=== PATIENT | female | born 1975 | race Two or more races ===

== ENCOUNTER 2025-06-03 16:59 | Emergency (ER) | payer OTHER, SELFPAY ==
--- OUTSIDE RECORDS SUMMARY | 2023-06-11 10:31 | XMS_ITS | Continuity of Care Document ---
Author Organization [facility] Address [address] [address] [place] [address] Phone Care Team Providers Care Devops Developer Name Role Phone Brigitte Willoughby CRNA Unavailable Unavailable Allergies, Adverse Reactions, Alerts Substance Reaction Status Criticality No Known Allergies Active No Inform ation Medications Medication Instructions Dosage Effective Dates (start - stop) Status Comments No Drug Therapy Prescribed Procedures Procedure Date Colonoscopy Flex; W/remov Les- Level Iv-surg Path Gross/micro Advance Directives Directive Yes / No Effective Date File Name No Information Encounters Encounter Description Practice Location Reason(s) For Visit Diagnoses Date Provider Providers Copied on Encounter [facility], [address] [address], [place], [place], [id number], tel:[phone] [facility] No Information 3 Fartun Briggs. [address] [facility], [address], [id number] , [place]. tel:[phone] Referring Provider: Jacques Campuzano MD M, [address] [facility] [address] [place], [address] . tel:[phone] [facility] [place], [address] [address], [place], [place], [id number], tel:[phone] [facility] GI Symptoms or Concerns (chief complaint) Colorectal polypsEncounter for screening for malignant neoplasm of colonBenign neoplasm of transverse colon 3 Justen Hanna. [address] [facility], [address], [place], [place], [id number] , [place]. [phone] Referring Provider: Referral Self, USE FOR SELF REFERRALS. Family History Family Member Type Diagnosis Age At Onset Father Problem (finding) Cancer, prostate Father Problem (finding) Alcoholism Father Problem (finding) Pancreatitis Father Problem (finding) Cancer, lung Payers Payer name Insurance type Covered democrat ID Mariana kate(s) [employer] CR/MA [id number] Social History Type Description Quantity Date Captured Comments Sex Female Smoking Status No Information Chief Complaint And Reason For Visit No Information Reason For Referral Reason For Referral No Information History Of Present Illness Encounter Date Complaint History Of Prese nt Illness GI Symptoms or Concerns Functional Status Date Functional Assessmen t No Information Medications Administered Medication Instructions Dosage Effective Dates (start - stop) Status Comments No Drug Therapy Prescribed Instructions Date Instruction Additional Infor david Colon Cancer Prevention Related to Colorectal polyps Colon Polyps Related to Color ectal polyps Assessments Type Assessment Date No Information Patient Care Teams Name Effective Dates (start - stop) Status Members No Information
--- OUTSIDE RECORDS SUMMARY | 2023-06-11 10:31 | XMS_ITS | Continuity of Care Document ---
Author Organization [facility] Address [address] [address] [place] [address] Phone Care Team Providers Care Cabin Worker Name Role Phone Brigitte Willoughby CRNA Unavailable [...] Date Provider Providers Copied on Encounter [facility], [address] [address], [place], [place], [id number], tel:[phone] [facility] No Information 3 Fartun Briggs. [address] [facility], [address], [id number] , [place]. tel:[phone] Referring Provider: Jacques Campuzano MD M, [address] [facility] [address], [place], [address] . tel:[phone] [facility], [address] [address], [place], [place], [id number], tel:[phone] [facility] GI Symptoms or Concerns (chief complaint) Colorectal polypsEncounter for screening for malignant neoplasm of colonBenign neoplasm of transverse colon 3 Justen Hanna. [address] [facility], [address], [place], [place], [id number] , [place]. [phone] Referring Provider: Referral Self, USE FOR SELF REFERRALS. Family History Family Member Type Diagnosis Age At Onset Father Problem (finding) Cancer, prostate Father Problem (finding) Alcoholism Father Problem (finding) Pancreatitis Father Problem (finding) Cancer, lung Payers Payer name Insurance type Covered democrat ID Mariana kate(s) [employer] CR/MA [id number] Social History Type Description Quantity Date Captured [...]
--- OUTSIDE RECORDS SUMMARY | 2023-06-11 10:31 | XMS_ITS | Continuity of Care Document ---
Author Organization [facility] Address [address] [address] [place] [address] Phone Care Team Providers Care International Trade Compliance Manager Name Role Phone Brigitte Willoughby CRNA Unavailable [...] Diagnoses Date Provider Providers Copied on Encounter [facility] [place], [address] [address], [place], [place], [address], tel:[phone] [facility] No Information 3 Fartun Briggs. [address] [facility], [address], [id number] , [place]. tel:[phone] Referring Provider: Jacques Campuzano MD M, [address] [facility] [address], [place], [address] . tel:[phone] [facility] [place], [address] [address], [place], [place], [address], tel:[phone] [facility] GI Symptoms or Concerns (chief complaint) Colorectal polypsEncounter for screening for malignant neoplasm of colonBenign neoplasm of transverse colon 3 Justen Hanna. [address] [facility], [address], [place], [place], [id number] , [place]. [phone] Referring Provider: Referral Self, USE FOR SELF REFERRALS. Family History Family Member Type Diagnosis Age At Onset Father Problem (finding) Cancer, prostate Father Problem (finding) Alcoholism Father Problem (finding) Pancreatitis Father Problem (finding) Cancer, lung Payers Payer name Insurance type Covered alliance party ID Mariana kate(s) [id number] CR/MA [id number] Social History Type Description Quantity Date Captured [...]
--- OUTSIDE RECORDS SUMMARY | 2025-05-09 21:08 | XMS_ITS | Encounter Summary ---
Author Organization [facility] Address [address] [place] [address] Care Team Providers Care Director Of Curriculum And Instruction Name Role Phone No Ref-Primary, Physician Primary Care Provider Reason for Visit * Reason Comments Abdominal Pain Nausea Encounter Details Date Type Department Care Team (Late st Contact Info) Description 05/09/2025 9:08 PM CDT - 05/10/2025 1:17 AM CDT Emergency [facility] Emergency Dept [address] [place] [address] Lee Solitario, [facility] [address] [address] [place], [place] [id number] Ureterolithiasis (Primary Dx) Discharge Disposition: Home or Self Care Social History Tobacco Use Types Packs/Day Years Used Date Smoking Tobacco: Never Assessed Adolescent Education Answer Date Record ed Getting School Help Needed Not on file 05/09 Comments No Sex and Gender Information Value Date Recorded Sex Assigned at Not on file Legal Sex Female 5:06 PM CDT Gender Identity Not on file Sexual Orientation Not on file documented as of this encounter Last Filed Vital Signs Vital Sign Reading Time Taken Comments Blood Pressure 118/66 05/10/2025 1:13 AM CDT Pulse 62 05/10/2025 1:13 AM CDT Temperature 37 C (98.6 F) 05/09/2025 5:35 PM CDT Respiratory Rate 18 05/09/2025 5:35 PM CDT Oxygen Saturation 100% 05/10/2025 1:13 AM CDT Inhaled Oxygen Concentration - - Weight 64.4 kg (142 lb) 05/09/2025 5:35 PM CDT Height - - Body Mass Index - - documented in this encounter Discharge Instructions * Discharge Instructions* Lee Solitario DO - 05/10/2025 1:05 AM CDT Tylenol and ibuprofen as needed for pain. Drink plenty fluids. Follow-up with urology if not improving. Stronger pain medications as needed. Return with any new or worsening symptoms or for any otherconcerns * Attachments The following attachments cannot be sent through Care Everywhere. * Kidney Stone (Georgian) documented in this encounter Medications at Time of Discharge HYDROcodone-aceta minophen (NORCO) 5-325 MG tablet Take 1 tablet by mouth every 6 hours as needed. 10 tablet 05/10/2025 05/13/2025 documented as of this encounter ED Notes * Lee Solitario DO - 05/09/2025 9:15 PM CDT Emergency Department Note History of Present Illness Chief Complaint Abdominal Pain and Nausea HPI Ally Olvera is a 49 year old female who presents to the ED for abdominal pain and nausea. Patient reports that she began to suffer intense pain localized to her right abdomen that radiates to her flank and towards her groin area. She notes she had mozambican food prior to onset of pain, and that the pain currently is worse than when she had nephrolithiasis. Independent Historian None Review of External Notes Reviewed outside ED note from January. Past Medical History Medical History and Problem List Ureteral calculus Medications Dulcolax Zofran Golytely Flomax Surgical History No surgical history on file. Physical Exam Patient Vitals for the past 24 hrs: BP Temp Temp src Pulse Resp SpO2 Weight 05/09/25 1735 135/67 98.6 ??F (37 ??C) Temporal 70 18 99 % 64.4 kg (142 lb) Physical Exam Constitutional: Appearance: She is well-developed. Cardiovascular: Rate and Rhythm: Normal rate. Pulmonary: Effort: Pulmonary effort is normal. Abdominal: Palpations: Abdomen is soft. Tenderness: There is abdominal tenderness in the right upper quadrant and right lower quadrant. There is right CVA tenderness. Musculoskeletal: General: Normal range of motion. Skin: General: Skin is warm and dry. Neurological: General: No focal deficit present. Mental Status: She is alert and oriented to person, place, and time. Diagnostics Lab Results Labs Ordered and Resulted from Time of ED Arrival to Time of ED Departure COMPREHENSIVE METABOLIC PANEL (LIMITED OCCURRENCES) - Abnormal Result Value Sodium 133 (*) Potassium 3.7 Carbon Dioxide (CO2) 22 Anion Gap 10 Urea Nitrogen 12.4 Creatinine 0.92 GFR Estimate 75 Calcium 8.9 Chloride 101 Glucose 145 (*) Alkaline Phosphatase 82 AST 19 ALT 16 Protein Total 6.9 Albumin 4.0 Bilirubin Total 0.5 ROUTINE UA WITH MICROSCOPIC REFLEX TO CULTURE - Abnormal Color Urine Yellow Appearance Urine Clear Glucose Urine Negative Bilirubin Urine Negative Ketones Urine Trace (*) Specific [place] Urine 1.020 Blood Urine Small (*) pH Urine 6.5 Protein Albumin Urine Negative Urobilinogen Urine 6.0 (*) Nitrite Urine Negative Leukocyte Esterase Urine Negative Mucus Urine Present (*) RBC Urine 19 (*) WBC Urine 7 (*) Squamous Epithelials Urine 4 (*) Hyaline Casts Urine 3 (*) CBC WITH PLATELETS (LIMITED OCCURRENCES) - Normal WBC Count 9.25 RBC Count 4.35 Hemoglobin 13.0 Hematocrit 39.0 MCV 89.7 MCH 29.9 MCHC 33.3 RDW 12.8 Platelet Count 287 LIPASE - Normal Lipase 27 HCG QUANTITATIVE - Normal hCG Quantitative <[address] Abdomen Pelvis w Contrast Final Result IMPRESSION: 1. A 7 mm stone in the distal right ureter with associated mild hydroureter/hydronephrosis. No other radiodense kidney/ureteral stones. No left hydronephrosis. 2. Mild diffuse urinary bladder wall thickening, nonspecific, can be seen with under-distention vs chronic cystitis, recommend correlation with urinalysis. 3. A 1.3 cm left adrenal nodule, slightly increased in size as compared to the 06/01/2018 exam where it measured 11 mm, could represent adrenal adenoma. 4. Hepatic steatosis. EKG Independent Interpretation None ED Course Medications Administered Medications ketorolac (TORADOL) injection 15 mg (has no administration in time range) HYDROcodone-acetaminophen (NORCO) 5-325 MG per tablet 1 tablet (has no administration in time range) ondansetron (ZOFRAN ODT) ODT tab 4 mg (4 mg Oral $Given 05/09/251739) sodium chloride 0.9% BOLUS 1,000 mL (1,000 mLs Intravenous $New Bag 05/09/252132) ketorolac (TORADOL) injection 15 mg (15 mg Intravenous $Given 05/09/252132) HYDROcodone-acetaminophen (NORCO) 5-325 MG per tablet 2 tablet (2 tablets Oral $Given 05/09/252132) sodium chloride 0.9 % bag for CT scan flush (59 mLs Intravenous $Given 05/09/252234) iohexol (OMNIPAQUE) 350 MG/ML injectable solution 500 mL (75 mLs Intravenous $Given 05/09/252234) Procedures Procedures Discussion of Management None ED Course ED Course as of 05/10/25106May 09, 20252115 I obtained history and examined the patient as noted above Additional Documentation None Medical Decision Making / Diagnosis [facility] Diagnoses: None MIPS None MDM Ally Olvera is a 49 year old female with right upper quadrant pain, right flank pain, right abdomen pain. Pain was severe. Associated nausea. History of urolithiasis. Differential diagnosis includes gallbladder disease, appendicitis, infection, ureterolithiasis. 7 mm distal ureteral stone on the right. She is well-appearing and nontoxic. She is resting comfortably. No vomiting. Has had multiple stones in the past and never required stent or lithotripsy. No signs of infectious process. Normal renal function. Patient is comfortable going home to continue trying to pass the stone. We have given strict return precautions. Patient understands and agrees with plan Disposition The patient was discharged. Diagnosis ICD-10-CM 1. Ureterolithiasis N20.1 Discharge Medications New Prescriptions HYDROCODONE-ACETAMINOPHEN (NORCO) 5-325 MG TABLET Take 1 tablet by mouth every 6 hours as needed. Scribe Disclosure: I, Wayne Dorsey, am serving as a scribe at 9:18 PM on 05/09/2025 to document services personally performed by Lee Solitario DO based on my observations and the provider's statements to me. 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 She has had similar episodes over that past several days but they resolved after a few min and the pain was not as intense. Also endorses associated nausea. Right now she feels that she can't take a good breath in because of the pain. No previous GI hx. Recently diagnosed with kidney stones documented in this encounter Plan of Treatment Not on file documented as of this encounter Procedures Procedure Name Priority Date/Time Associated Diagnosis Comments CT ABDOMEN PELVIS W CONTRAST STAT 05/09/2025 10:44 PM CDT ROUTINE UA WITH MICROSCOPIC REFLEX TO CULTURE STAT 05/09/2025 10:12 PM CDT EXTRA TUBE STAT 05/09/2025 6:13 PM CDT EXTRA RED TOP TUBE STAT 05/09/2025 6: 13 PM CDT EXTRA BLUE TOP TUBE STAT 05/09/2025 6 :13 PM CDT CBC WITH PLATELETS (LIMITED OCCURRENCES) STAT 05/09/2025 6:13 PM CDT COMPREHENSIVE METABOLIC PANEL (LIMITED OCCURRENCES) STAT 05/09/2025 6:13 PM CDT LIPASE STAT 05/09/2025 6:13 PM CDT HCG QUANTITATIVE STAT 05/09/2025 6:13 PM CDT documented in this encounter Results * CT Abdomen Pelvis w Contrast (05/09/2025 10:44 PM CDT) Anatomical Region Laterality Modality Abdomen/Pelvis, SUBRAD CT ASHLEE DY, UMP CT ABDOMEN PELVIS, RAD CT Computed Tomography 05/09/2025 10:4 4 PM CDT Impressions 05/09/2025 11:47 PM CDT IMPRESSION: 1. A 7 mm stone in the distal right ureter with associated mild hydroureter/hydronephrosis. No other radiodense kidney/ureteral stones. No left hydronephrosis. 2. Mild diffuse urinary bladder wall thickening, nonspecific, can be seen with under-distention vs chronic cystitis, recommend correlation with urinalysis. 3. A 1.3 cm left adrenal nodule, slightly increased in size as compared to the 06/01/2018 exam where it measured 11 mm, could represent adrenal adenoma. 4. Hepatic steatosis. Narrative 05/09/2025 11:47 PM CDT EXAM: CT ABDOMEN PELVIS W CONTRAST LOCATION: [facility] DATE: 05/09/2025 INDICATION: RUQ, RLQ, right flank. COMPARISON: CT abdomen and pelvis on 01/21/2025. TECHNIQUE: CT scan of the abdomen and pelvis was performed after the injection of 75 mL Omnipaque 350 intravenously. Multiplanar reformats were obtained. Dose reduction techniques were used. FINDINGS: LOWER CHEST: Mild basilar pulmonary opacities, likely atelectasis. ABDOMEN/PELVIS: HEPATOBILIARY: Mild diffuse hypodense appearance of the liver, likely due to underlying hepatic steatosis. No suspicious focal hepatic lesion. No radiodense gallstones. PANCREAS: No main pancreatic ductal dilatation or definite solid pancreatic mass. SPLEEN: No splenomegaly. ADRENAL GLANDS: 1.3 cm left adrenal nodule, slightly increased in size as compared to the 06/01/2018 exam when it measured 11 mm, could represent adrenal adenoma. No right adrenal nodule. KIDNEYS/BLADDER: 7 x 5 x 4 mm stone in the distal right ureter with associated mild hydroureter/hydronephrosis. No other radiodense kidney/ureteral stone. No left hydronephrosis. Mild diffuse urinary bladder wall thickening, nonspecific, can seen with under-distention vs chronic cystitis. BOWEL: No abnormally dilated bowel loops. The appendix is visualized and appears normal. PERITONEUM: No evidence of free fluid in the abdomen and pelvis. No free peritoneal or portal venous gas. PELVIC ORGANS: 2.6 cm right adnexal cystic area, likely ovarian. VASCULATURE: Unremarkable. LYMPH NODES: No significant abdominopelvic lymphadenopathy. MUSCULOSKELETAL: No suspicious osseous lesion. Procedure Note Magdalena Alcantar MD - 05/09/2025 EXAM: CT ABDOMEN PELVIS W CONTRAST LOCATION: [facility] DATE: 05/09/2025 INDICATION: RUQ, RLQ, right flank. COMPARISON: CT abdomen and pelvis on 01/21/2025. TECHNIQUE: CT scan of the abdomen and pelvis was performed after theinjection of 75 mL Omnipaque 350 intravenously. Multiplanar reformats wereobtained. Dose reduction techniques were used. FINDINGS: LOWER CHEST: Mild basilar pulmonary opacities, likely atelectasis. ABDOMEN/PELVIS: HEPATOBILIARY: Mild diffuse hypodense appearance of the liver, likely dueto underlying hepatic steatosis. No suspicious focal hepatic lesion. Noradiodense gallstones. PANCREAS: No main pancreatic ductal dilatation or definite solidpancreatic mass. SPLEEN: No splenomegaly. ADRENAL GLANDS: 1.3 cm left adrenal nodule, slightly increased in size ascompared to the 06/01/2018 exam when it measured 11 mm, could representadrenal adenoma. No right adrenal nodule. KIDNEYS/BLADDER: 7 x 5 x 4 mm stone in the distal right ureter withassociated mild hydroureter/hydronephrosis. No other radiodensekidney/ureteral stone. No left hydronephrosis. Mild diffuse urinarybladder wall thickening, nonspecific, can seen with under-distention vs chronic cystitis. BOWEL: No abnormally dilated bowel loops. The appendix is visualized andappears normal. PERITONEUM: No evidence of free fluid in the abdomen and pelvis. No freeperitoneal or portal venous gas. PELVIC ORGANS: 2.6 cm right adnexal cystic area, likely ovarian. VASCULATURE: Unremarkable. LYMPH NODES: No significant abdominopelvic lymphadenopathy. MUSCULOSKELETAL: No suspicious osseous lesion. IMPRESSION: 1. A 7 mm stone in the distal right ureter with associated mildhydroureter/hydronephrosis. No other radiodense kidney/ureteral stones. Noleft hydronephrosis. 2. Mild diffuse urinary bladder wall thickening, nonspecific, can be seenwith under-distention vs chronic cystitis, recommend correlation withurinalysis. 3. A 1.3 cm left adrenal nodule, slightly increased in size as comparedto the 06/01/2018 exam where it measured 11 mm, could represent adrenaladenoma. 4. Hepatic steatosis. us Lee Solitario DO IMG CT ORDERABLES Final Result * (ABNORMAL) UA with Microscopic reflex to Culture (05/09/2025 10:12 PM CDT) Color Urine Yellow Colorless, Straw, Light Yellow, Yellow 05/09/2025 10:36 PM CDT LABORATORY Appearance Urine Clear Clear 05/09/20 10:36 PM CDT LABORATORY Glucose Urine Negative Negative mg/dL 05/09/2025 10:36 PM CDT LABORATORY Bilirubin Urine Negative Negative 10:36 PM CDT LABORATORY Ketones Urine Trace(A) Negative mg/dL 05/09/2025 10:36 PM CDT LABORATORY Specific [place] Urine 1.020 1.003 - 1.035 05/09/2025 10:36 PM CDT LABORATORY Blood Urine Small(A) Negative 05/09/2025 10:36 PM CDT LABORATORY pH Urine 6.5 5.0 - 7.0 05/09/2025 10:36 PM CDT LABORATORY Protein Albumin Urine Negative Negative mg/dL 05/09/2025 10:36 PM CDT LABORATORY Urobilinogen Urine 6.0(A) Normal mg/dL 05/09/2025 10:36 PM CDT LABORATORY Nitrite Urine Negative Negative 05/09/2025 10:36 PM CDT LABORATORY Leukocyte Esterase Urine Negative Negative 05/09/2025 10:36 PM CDT LABORATORY Mucus Urine Present(A) None Seen /LPF 05/09/2025 10:36 PM CDT LABORATORY RBC Urine 19(H) <=2 /HPF 05/09/2025 10:36 PM CDT LABORATORY WBC Urine 7(H) <=5 /HPF 05/09/2025 10:36 PM CDT LABORATORY Squamous Epithelials Urine 4(H) <=1 /HPF 05/09/2025 10:36 PM CDT [facility] Hyaline Casts Urine 3(H) <=2 /LPF 05/09/2025 10:36 PM CDT LABORATORY Urine URINE SPECIMEN / Unknown Non-blood Collection / Unknown 05/09/2025 10:12 PM CDT 05/09/2025 10:22 PM CDT Narrative [facility] - 05/09/2025 10:36 PM CDT Urine Culture not indicated Lee Solitario DO LAB - URINE ORDERABLES Final R esult [facility] [address] Lab (1st floor, no room number) [place] [address] * HCG quantitative (05/09/2025 6:13 PM CDT) hCG Quantitative <1 <5 mIU/mL 05/09/20 10:12 PM CDT LABORATORY Comment: Adult: 0-5 mIU/mL for healthy non- person Neonates: Should be within normal ranges by 2 days after Blood STRUCTURE OF RIGHT UPPER LIMB / Unknown Venipuncture / Unknown 05/09/2025 6:13 PM CDT 05/09/2025 6:27 PM CDT Lee Solitario DO LAB - BLOOD ORDERABLES Final R esult Performing Organization Address [facility] Co de Phone Number [facility] [address] Lab (1st floor, no room number) [place] [address] * Extra Red Top Tube (05/09/2025 6:13 PM CDT) Hold Specimen JIC 05/09/2025 7:32 PM CDT LABORATORY Blood STRUCTURE OF RIGHT UPPER LIMB / Unknown Venipuncture / Unknown 05/09/2025 6:13 PM CDT 05/09/2025 6:27 PM CDT Lee Solitario DO LAB - BLOOD ORDERABLES Final R esult [facility] [address] Lab (1st floor, no room number) [place] [address] * Extra Blue Top Tube (05/09/2025 6:13 PM CDT) Hold Specimen JIC 05/09/2025 7:32 PM CDT LABORATORY Blood STRUCTURE OF RIGHT UPPER LIMB / Unknown Venipuncture / Unknown 05/09/2025 6:13 PM CDT 05/09/2025 6:27 PM CDT Lee Solitario DO LAB - BLOOD ORDERABLES Final R esult Performing Organization Address City/[facility]/ZIP Co de Phone Number [facility] [address] Lab (1st floor, no room number) [place] [address] * Lipase (05/09/2025 6:13 PM CDT) Pathologist [facility] Lipase 27 13 - 60 U/L 05/09/2025 6:50 PM CDT LABORATORY Blood STRUCTURE OF RIGHT UPPER LIMB / Unknown Venipuncture / Unknown 05/09/2025 6:13 PM CDT 05/09/2025 6:27 PM CDT Lee Solitario DO LAB - BLOOD ORDERABLES Final R esult Performing Organization Address City/[facility]/ZIP Co de Phone Number [facility] [address] Lab (1st floor, no room number) [place] [phone] * (ABNORMAL) Comprehensive Metabolic Panel (Limited Occurrences) (05/09/2025 6:13 PM CDT) Sodium 133(L) 135 - 145 mmol/L 05/09/2025 6:50 PM CDT LABORATORY Potassium 3.7 3.4 - 5.3 mmol/L 05/09/2025 6:50 PM CDT LABORATORY Carbon Dioxide (CO2) 22 22 - 29 mmol/L 05/09/2025 6:50 PM CDT [facility] Anion Gap 10 7 - 15 mmol/L 05/09/2025 6:50 PM CDT [facility] Urea Nitrogen 12.4 6.0 - 20.0 mg/dL 05/09/2025 6:50 PM CDT [facility] Creatinine 0.92 0.51 - 0.95 mg/dL 05/09/2025 6:50 PM CDT [facility] GFR Estimate 75 >60 mL/min/1.7 3m2 05/09/2025 6:50 PM CDT LABORATORY Comment:eGFR calculated us2020 CKD-EPI equation. Calcium 8.9 8.8 - 10.4 mg/dL 05/09/2025 6:50 PM CDT LABORATORY Chloride 101 98 - 107 mmol/L 05/09/2025 6:50 PM CDT LABORATORY Glucose 145(H) 70 - 99 mg/dL 05/09/2025 6:50 PM CDT LABORATORY Alkaline Phosphatase 82 40 - 150 U/L 05/09/2025 6:50 PM CDT LABORATORY AST 19 0 - 45 U/L 05/09/2025 6:50 PM CDT LABORATORY ALT 16 0 - 50 U/L 05/09/2025 6:50 PM CDT LABORATORY Protein Total 6.9 6.4 - 8.3 g/dL 05/09/2025 6:50 PM CDT LABORATORY Albumin 4.0 3.5 - 5.2 g/dL 05/09/2025 6:50 PM CDT LABORATORY Bilirubin Total 0.5 <=1.2 mg/dL 05/09/2025 6:50 PM CDT LABORATORY Blood STRUCTURE OF RIGHT UPPER LIMB / Unknown Venipuncture / Unknown 05/09/2025 6:13 PM CDT 05/09/2025 6:27 PM CDT us Lee Solitario DO LAB - BLOOD ORDERABLES Final R esult LABORATORY [facility] [address] Lab (1st floor, no room number) [place] [address], [place] * CBC with Platelets (Limited Occurrences) (05/09/2025 6:13 PM CDT) WBC Count 9.25 4.00 - 11.00 10e3/uL 05/09/2025 6:33 PM CDT [facility] RBC Count 4.35 3.80 - 5.20 10e6/uL 05/09/2025 6:33 PM CDT [facility] Hemoglobin 13.0 11.7 - 15.7 g/dL 05/09/2025 6:33 PM CDT [facility] Hematocrit 39.0 35.0 - 47.0 % 05/09/2025 6:33 PM CDT [facility] MCV 89.7 78.0 - 100.0 fL 05/09/2025 6:33 PM CDT [facility] MCH 29.9 26.5 - 33.0 pg 05/09/2025 6:33 PM CDT [facility] MCHC 33.3 31.5 - 36.5 g/dL 05/09/2025 6:33 PM CDT [facility] RDW 12.8 10.0 - 15.0 % 05/09/2025 6:33 PM CDT [facility] Platelet Count 287 150 - 450 10e3/uL 05/09/2025 6:33 PM CDT [facility] Blood STRUCTURE OF RIGHT UPPER LIMB / Unknown Venipuncture / Unknown 05/09/2025 6:13 PM CDT 05/09/2025 6:27 PM CDT us Lee Solitario DO LAB - BLOOD ORDERABLES Final R esult LABORATORY [facility] [address] [facility] Lab (1st floor, no room number) [place] [address], [facility] documented in this encounter Visit Diagnoses Diagnosis Ureterolithiasis- Primary Calculus of ureter documented in this encounter Administered Medications Inactive Administered Medications - up to 3 most recent administrations Medication Order MAR Action Action Date Dose Rate Site HYDROcodone-acetaminophen (NORCO) 5-325 MG per tablet 1 tablet 1 tablet, Oral, ONCE, On Fri05/10/25 at 0110, For 1 dose, Maximum acetaminophen dose from all sources= 75 mg/kg/day not to exceed 4 grams $Given 05/10/2025 1:08 AM CDT 1 tablet HYDROcodone-acetaminophen (NORCO) 5-325 MG per tablet 2 tablet 2 tablet, Oral, ONCE, On Fri05/09/25 at 2120, For 1 dose, Maximum acetaminophen dose from all sources= 75 mg/kg/day not to exceed 4 grams $Given 05/09/2025 9:33 PM CDT 2 tablets iohexol (OMNIPAQUE) 350 MG/ML injectable solution 500 mL 500 mL, Intravenous, ONCE, On Fri05/09/25 at 2235, For 1 dose $Given 05/09/2025 10:35 PM CDT 75 mLs ketorolac (TORADOL) injection 15 mg 15 mg, Intravenous, ONCE, On Fri05/09/25 at 2120, For 1 dose, Can cause pain on injection. If ordered intravenously (IV) : administer through a running maintenance fluid over 1 minute followed by a flush. If patient complains of pain on injection, may dilute 15-30 mg in 5 mL and push over 1 to 2 minutes. $Given 05/09/2025 9:33 PM CDT 15 mg ondansetron (ZOFRAN ODT) ODT tab 4 mg 4 mg, Oral, ONCE, On Fri05/09/25 at 1740, For 1 dose, With dry hands, peel back foil backing and gently remove tablet. Do not push oral disintegrating tablet through foil backing. Administer immediately on tongue and oral disintegrating tablet dissolves in seconds, then swallow with saliva. Liquid not required. $Given 05/09/2025 5:40 PM CDT 4 mg sodium chloride 0.9 % bag for CT scan flush Intravenous, 100 mL, ONCE, On Fri05/09/25 at 2235, For 1 dose, This entry is for use by Radiology to intermittently used as a flush in patients receiving a CT scan. $Given 05/09/2025 10:35 PM CDT 59 mLs sodium chloride 0.9% BOLUS 1,000 mL Intravenous, 1,000 mL, ONCE, at 1,000 mL/hr, Administer over 1 Hours, On Fri05/09/25 at 2120, For 1 dose $New Bag 05/09/2025 9:33 PM CDT 1,000 mLs 1000 mL/hr documented in this encounter Active and Recently Administered Medications Times are shown in CDT. Scheduled Medication Order 05/08/2025 05/09/2025 05/10/2025 HYDROcodone-acetaminophen (NORCO) 5-325 MG per tablet 1 tablet (COMPLETED) 1 tablet, Oral, ONCE, On Fri05/10/25 at 0110, For 1 dose, Maximum acetaminophen dose from all sources= 75 mg/kg/day not to exceed 4 grams 010 ($Given - Provider: Olga Lynn RN) HYDROcodone-acetaminophen (NORCO) 5-325 MG per tablet 2 tablet (COMPLETED) 2 tablet, Oral, ONCE, On Fri05/09/25 at 2120, For 1 dose, Maximum acetaminophen dose from all sources= 75 mg/kg/day not to exceed 4 grams 2132 ($Given - Provider: Dee Hardy RN) iohexol (OMNIPAQUE) 350 MG/ML injectable solution 500 mL (COMPLETED) 500 mL, Intravenous, ONCE, On Fri05/09/25 at 223, For 1 dose 2234 ($Given - Provider: BRIE Dietz) ketorolac (TORADOL) injection 15 mg (COMPLETED) 15 mg, Intravenous, ONCE, On Fri05/09/25 at 2120, For 1 dose, Can cause pain on injection. If ordered intravenously (IV) : administer through a running maintenance fluid over 1 minute followed by a flush. If patient complains of pain on injection, may dilute 15-30 mg in 5 mL and push over 1 to 2 minutes. 2132 ($Given - Provider: Dee Hardy RN) ondansetron (ZOFRAN ODT) ODT tab 4 mg (COMPLETED) 4 mg, Oral, ONCE, On Fri05/09/25 at 1740, For 1 dose, With dry hands, peel back foil backing and gently remove tablet. Do not push oral disintegrating tablet through foil backing. Administer immediately on tongue and oral disintegrating tablet dissolves in seconds, then swallow with saliva. Liquid not required. 1739 ($Given - Provider: Aurelia Link RN) sodium chloride 0.9 % bag for CT scan flush (COMPLETED) Intravenous, 100 mL, ONCE, On Fri05/09/25 at 2235, For 1 dose, This entry is for use by Radiology to intermittently used as a flush in patients receiving a CT scan. 2234 ($Given - Provider: Aura Camby, ARRT) sodium chloride 0.9% BOLUS 1,000 mL (COMPLETED) Intravenous, 1,000 mL, ONCE, at 1,000 mL/hr, Administer over 1 Hours, On Fri05/09/25 at 2120, For 1 dose 2133 ($New Bag - Provider: Dee Hardy, RN) 0113 (Stopped - Provider: Olga Lynn RN) documented in this encounter Care Teams Director Of Curriculum And Instruction Relationship Specialty Start Date End Date No Ref-Primary, Physician PCP - General 05/09/25 documented as of this encounter
--- OUTSIDE RECORDS SUMMARY | 2025-06-03 17:00 | XMS_ITS | Data Portability ---
Author Organization [facility] Address [address] [place] [address] Care Team Providers Care Paper Conservator Name Role Phone URGENCY ROOM SHYAM Referring Provider [phone] Assessment Encounter Date Assessment Date Assessment LastModified by Organization Details LastModified Time 01/25/2025 01/25/2025 This is a 49 yea r old F who is referred for the evaluation and management of nephrolithiasis [facility] Not available 01/25/2025 15:42:04 Plan of Treatment Reminders Order Date Submit Date Provider Last Modified By Organization Details Last Modified Time Details Appointments ESTABLISH ED 15 2024 09:15A Lindy Garcia MD Not available Not available Not available Lab None recorded. Referral None recorded. Procedures None recorded. Surgeries None recorded. Imaging CT, abdomen + pelvis, w/o contrast - Recently noted to have an 8 mm stone within the right ureter, recently passed 3 stones. To confirm stone burden and current location of stones 2024 025 [email or web address] [facility], [address], [address], 06/01/2025 10:21:29 Medication Orders hydrocodo ne 10 mg-acetam inophen 325 mg tablet 2024 025 [id number], [address], [place], [place], [id number], 01/26/2025 15:23:46 Patient TargetsNo targets recorded. Patient Instructions Encounter Date Encounter Id Patient Instructions Last Modified By Organization Details Last Modified Time 01/25/2025 [id number] I had the opportunity to review the patient's imaging and reports. Since that she feels that she has passed the stones, will reimage to confirm. If continues to show obstructing stone, recommend surgery. Patient in agreement with plan. We then discussed the options for management. We then discussed ureteroscopic stone management. We discussed the technical aspects of the procedure as well as its limitations. We discussed the risks of the procedure including bleeding, infection. risk of ureteral injury, need for secondary procedures, and anesthetic complications. We also discussed that in about 5-10% of cases the ureter cannot facilitate the scope and this may require stent placement and a delayed procedure. We also discussed a ureteral stent is often left in place at the end of the procedure. This is not a permanent tube and must be removed, hopefully within 1-2 weeks of the procedure but certainly not more than 3 months post-procedure. Will call pt with CT results and place surgery orders if needed [email or web address] Not available 01/25/2025 15:46:50 Reason for Referral None Reported. Results Created Date Observation Date Name Description Value Unit Range Abnormal Flag Note LastModifiedBy Organization Detail LastModifiedTime 01/25/20 25 01/21/2025 CT, abdom en + pelvi s, w/o contr ast No observ ation record ed. [email or web address] Not Available 01/24 13:11:22 Result Notes None recorded. Procedures Surgical History Date Name Laterality Status Provider Name and Address Organization Details Recorded Time 06/19/20 24 Diagnostic colonoscopy completed Not Available Health Note 01/24/2025 16:31:04 Imaging Results None recorded. Procedure Notes None recorded. Medical Equipment None Reported. Allergies No known drug allergies Medications Name Sig Start Date Stop Date Status Note LastModified by Organization Details LastModified Time hydrocodone 10 mg-acetaminop hen 325 mg tablet Take 1 tab as needed for pain 025 active Not Available Not Available Not Avai lable tamsulosin 0.4 mg capsule 0.4mg 1/day active Not Available Not Available No t Available Vitals Date Recorded Body mass index (BMI) Body weight Body height Provider Name and Address Organization Details Last Updated DateTime 01/25/2025 25.2 kg/m2 03479.50392 15672 g 157.48 cm Not Available Health Note 01/25/2025 08:17:38 Social History Question Answer Notes LastModified by Organizat ion Details LastModified Time Tobacco Smoking Status Former Smoker Not Available Health Note 01/24/2025 16:31:05 Do You Have An Advance Directive? No [email or web address] Information not available 01/24/2025 What Is Your Level Of Caffeine Consumption? Occasional [email or web address] Information not available 01/24/2025 How Much Tobacco Do You Chew? None [email or web address] Information not available 01/24/2025 When Did You Quit Smoking? 11-15yearssinc elastcigarette Information not available 01/25/2025 Number Of Pregnancies 3 [email or web address] Information not available 01/24/2025 Number Of Vaginal Deliveries 1 [email or web address] Information not available 01/24/2025 Number Of Caesarean Sections 0 [email or web address] Information not available 01/24/2025 Could You Be ? No [email or web address] Information not available 01/24/2025 Do You Have A Medical Power Of Border Patrol Officer? No [email or web address] Information not available 01/24/2025 What Was The Date Of Your Most Recent Tobacco Screening? 01/25/2025 [email or web address] Information not available 01/24/2025 Have You Ever Been Counseled For Unhealthy Alcohol Use? Yes Information not available 01/25/2025 What Is Your Relationship Status? [email or web address] Information not available 01/24/2025 Are You Sexually Active? Yes [email or web address] Information not available 01/24/2025 Has Tobacco Cessation Counseling Been Provided? No [email or web address] Information not available 01/25/2025 How Many Years Have You Smoked Tobacco? 5 [email or web address] Information not available 01/24/2025 How Many Days In The Past Year Have You Consumed 4 Or More Drinks? 7 [email or web address] Information no t available 01/24/2025 Sex: Unknown Functional Status Question Answer Note LastModified by Organizat ion Details LastModified Time Do you use any illicit or recreational drugs? No [email or web address] Information not available 01/24/2025 Do you or have you ever used any other forms of tobacco or nicotine? No [email or web address] Information not available 01/25/2025 What is your level of alcohol consumption? Moderate [email or web address] Information not available 01/24/2025 Do you or have you ever used smokeless tobacco? Never used smokeless tobacco [email or web address] Information not available 01/24/2025 Do you or have you ever used e-cigarettes or vape? Never used electronic cigarettes [email or web address] Information not available 01/24/2025 Mental Status None recorded. Family History Relationship Description Onset Age of this Age Resolved Age Notes LastModified by Organization Details LastModified Time Maternal Grandmother Family history of cardiac disorder [email or web address] Not available 2024 16:31:03 Father Family history of renal stone [facility]-[email or web address] Not available 04/2025 16:31:03 Father Family history of malignant neoplasm [facility]-[email or web address] Not available 2024 16:31:03 Medical History Condition Response Diabetes N Sexually Transmitted Infection N Bleeding Disorder N High Blood Pressure N Kidney Stones N Cancer N Lung Disease N Depression N High Cholesterol N GERD/Acid Reflux N Heart Disease N Gynecological History Statement/Question Response If Post Menopausal, Age at Menopause 43 Leaking urine with intercourse N Hormone Therapy N Sexually Active? Y Pain with intercourse N Obstetrics History GPAL:G 0 P 0 0 0 0 Past Encounters Encounter ID Performer Location Encounter Start Date Encounter Closed Date Diagnosis/Indication Diagnosis SNOMED-CT Code Diagnosis ICD10 Code Diagnosis IMO Codes Diagnosis Note [id number] Stanislaw Sexton PA-C [employer] [facility] [id number] [place] [phone] 01/25/2025 08:17:21 01/25/2025 15:58:13 Kidney stone 55373974 N20.0 21428 Health Concerns Section Related Observation LastModified by Organization Detai ls LastModified Time None Recorded Concern Status LastModified by Organization Details LastModified Time None Recorded Advance Directives Directive N: Payers Insurance Date Sequence Insurance Name Policy Number Policy [place] Covered Member ID [place] Member ID Guarantor Name 01/31/2025 1 *SELF PAY* Pardeep Olvera 01/31/2025 1 MEDICA CHOICE - [facility] CHOICE PLUS (POS) [id number] Ally Olvera [id number] Ally Olvera Notes Date Note Type Note Provider Name and Address Organization Details Recorded Time text/html This is a 49 year old F who is referred for the evaluation and management of nephrolithiasis Patient presented to the on 01/21/2025 with right flank painUA with hematuria, no signs of infectionCreatinine 0.73A CT of the abdomen and pelvis w/o contrast was performed on 01/21/2025 which revealed 8 mm distal right ureteral stone located 4 cm proximal to the UVJ producing mild hydro. A nonobstructing 2 mm stone in the lower pole of the right kidneyDischarged with Flomax Zofran and pain medication She reports passing 3 stones yesterday. Pain is improved. She denies any nausea or vomiting They report prior history of stone disease-When she was young. Passed spontaneously.There is family history of nephrolithiasis-mom. Stanislaw Sexton PA-C [address], [place], [address], [facility] 01/25/2025 15:47:13 OBGyn Episode No OBEpisode recorded.
--- OUTSIDE RECORDS SUMMARY | 2025-06-03 17:00 | XMS_ITS | Clinical Summary ---
Author Organization [facility] Address [address] [place] [address] Care Team Providers Care Rear Load Truck Driver Name Role Phone Clinic, No Pcp Or Primary Care Provider Unavaila ble Allergies No known active allergies Medications AMOXICILLIN ORAL Take by mouth. Activ e HYDROcodone-ac etaminophen (5-325 mg/tablet)Yessi cations:Renal colic on right side Take 1 Tablet by mouth every 6 hours if needed for Pain (pain not controlled with Motrin/Ibuproen). Max acetaminophen dose: 4000 mg in 24 hrs. 12 Tablet 5 Active Active Problems Problem Noted Date Diagnosed Date Ureteral calculus 01/21/2025 Overview (01/21/2025): An 8 x 5 x 3 mm distal right ureteral stone located 4 cm proximal to the ureterovesical junction producing mild proximal obstruction. 2. A nonobstructing 2 mm calyceal stone lower pole right kidney. Family History Relation Name Status Comments Father Mother Alive Social History Tobacco Use Types Packs/Day Years Used Date Smoking Tobacco: Former Cigarettes Q uit: 03/08/2005 Smokeless Tobacco: Never Tobacco Cessation:Counseling Given: Not Answered Alcohol Use Standard Drinks/Week Comments Not Currently 4 (1 standard drink = 0.6 oz pur e alcohol) Comments Unknown Sex and Gender Information Value Date Recorded Sex Assigned at Not on file Legal Sex Female 2:38 PM CDT Gender Identity Not on file Sexual Orientation Not on file Obstetrics History Last Filed Vital Signs Vital Sign Reading Time Taken Comments Blood Pressure 133/83 01/21/2025 3:28 PM CDT Pulse 76 01/21/2025 3:28 PM CDT Temperature 36.1 C (96.9 F) 01/21/2025 3:28 PM CDT Respiratory Rate 18 01/21/2025 3:28 PM CDT Oxygen Saturation 98% 01/21/2025 3:28 PM CDT Inhaled Oxygen Concentration - - Weight 63.5 kg (140 lb) 01/21/2025 3:28 PM CDT Height 157.5 cm (5' 2) 01/21/2025 3:28 PM CDT Body Mass Index 25.61 01/21/2025 3:28 PM CDT Plan of Treatment Health Maintenance Due Date Last Done Comments Tetanus booster 1984 Depression screening for age 12+ 1985 HIV for age 15-65 1988 BMI (ht and wt on same day) for age 18+ 1991 Hepatitis C screening for age 18-79 1991 Hepatitis B series for 19+ ( 1 of 3 - 19+ 3-dose series) 1992 Pap test for age 21-65 1994 Colonoscopy through age 75 2018 Lipids for age 45-75 2018 Mammogram for age 45-75 2018 10/16/2016 Pneumococcal series for age 50+ (1 of 1 - PCV) 023 Zoster (shingles) series for age 50+ (1 of 2) 06/28/20 23 COVID-19 vaccine series (1 - 2023- season) Influenza Vaccine (#1) 2025 RSV vaccine for adults or pr egnancy (1 - 1-dose 75+ series) 2048 Insurance MEDICA CHOICE Care Teams Rear Load Truck Driver Relationship Specialty Start Date End Date Clinic, No Pcp Or . PCP - General 10/18/19
--- OUTSIDE RECORDS SUMMARY | 2025-06-03 17:01 | XMS_ITS | Clinical Summary ---
Author Organization [facility] Address [address] [place] [address] Care Team Providers Care Robotics Technologist Name Role Phone Selene Hough MD Primary Care Provider + [phone] Source Comments You are receiving this document as you are listed as the primary care provider,follow-up provider, or the patient has been referred to you for consultation.This is in compliance with the Medicare and[facility] System[facility] EHR Incentive Program,which states Providers who transition their patient to another setting of careor provider of care or refers their patient to another provider of care shouldprovide summary care record for each transition of care or referral. [facility] Allergies No known active allergies Medications polyethylene glycol-electrol yte (PEG ELECTROLYTE) 236 g oral solution Take as directed in patient instructions: drink 2000mL at 6PM the evening before and 2000mL 4 hours before your procedure 4000 mL 4 Active bisacodyl 5 MG enteric coated tablet Take 4 tablets by mouth once at 5PM the evening before your procedure. 4 Tablet 4 Active ondansetron (ZOFRAN) 4 MG tablet Take 1 tablet by mouth every 6 hours as needed for nausea. 3 Tablet 4 Active Active Problems Problem Noted Date Diagnosed Date Cervical cancer screening 10/31/2022 Overview (10/18/2023): From visit on 10/23/22: History of abnormal pap tests? Yes 10/31/22: Pt reached. [facility]. She had about 3 not quite normal paps but she only needed 1 colp which was her most recent pap test. About 4 years ago. [place] was negative Has never been advised she needed treatment to her cx. 2022 is the next subsequent cotest. 2022 NILM, HPV High Risk Other Than 16/18 detected 47 y.o. 2023 NILM, HPV High Risk Other Than 16/18 detected 48 y.o. Plan: [place] Family History Medical History Relation Name Comments Cancer, Breast Negative Family History Cancer, Ovary Negative Family History Social History Tobacco Use Types Packs/Day Years Used Date Smoking Tobacco: Never Tobacco Cessation:Counseling Given: Not Answered Alcohol Use Standard Drinks/Week Comments Yes 0 (1 standard drink = 0.6 oz pur e alcohol) Weekly wine PHQ-2 Answer Date Recorded PHQ-2 Score 1 10/23/2022 Financial Resource Strain Answer Date R ecorded Is it hard for you to pay fo r the very basics like food, housing, medical care or heating? No 10/22/2022 Food Insecurity Answer Date Recorded Does your food run out before you have the money to buy more? No 10/22/2022 Transportation Needs Answer Date Record ed Does a lack of transportatio n keep you from your medical appointments or from getting your medications? No 023 Comments No Sex and Gender Information Value Date Recorded Sex Assigned at Not on file Legal Sex Female 3:04 PM CDT Gender Identity Not on file Sexual Orientation Not on file Last Filed Vital Signs Vital Sign Reading Time Taken Comments Blood Pressure 103/64 09/11/2023 3:09 PM DRAWBRIDGE OPERATOR Pulse 66 09/11/2023 3:09 PM DRAWBRIDGE OPERATOR Temperature 36.4 C (97.5 F) 10/23/2022 2:35 PM DRAWBRIDGE OPERATOR Respiratory Rate - - Oxygen Saturation 99% 10/23/2022 2:35 PM DRAWBRIDGE OPERATOR Inhaled Oxygen Concentration - - Weight 64.4 kg (142 lb) 09/11/2023 3:09 PM DRAWBRIDGE OPERATOR Height 155 cm (5' 1.02) 10/23/2022 2:35 PM DRAWBRIDGE OPERATOR Body Mass Index 26.81 10/23/2022 2:35 PM DRAWBRIDGE OPERATOR Plan of Treatment Health Maintenance Due Date Last Done Comments Hep C Screening (Preventive Services) 1973 HIV Screening (Preventive Services) 1989 DTaP/Tdap/Td Vaccine (1 - Tdap) 1992 HepB Vaccine (1) 1992 Pneumococcal Vaccine 50+ Yrs (1 of 1 - PCV) 2023 Zoster/Shingles Vaccine (1 of 2) 2023 Adult Preventive Visit 10/24/2023 10/23/2022 Mammogram 12/11/2023 12/10/2022 Cervical Cancer Screening 09/11/20242023, 09/11/2023, 10/23/2022, Additional history exists COVID-19 Vaccine ( - season) 2025 Influenza Vaccine (#1) 2025 Cholesterol 10/24/2027 10/23/2022 Colonoscopy 06/11/2028 06/11/2023 RSV Vaccine (1 - 1-dose 75+ series) 2048 HepA Vaccine Aged Out No longer eligi ble based on patient's age to complete this topic Hib Vaccine Aged Out No longer eligi ble based on patient's age to complete this topic IPV (Polio) Vaccine Aged Out No longe r eligible based on patient's age to complete this topic MCV4 Vaccine Aged Out No longer eligi ble based on patient's age to complete this topic Meningococcal B Vaccine Aged Out No l onger eligible based on patient's age to complete this topic Procedures Procedure Name Priority Date/Time Associated Diagnosis Comments CYTOLOGY (PAP) Routine 09/11/2023 4:02 PM DRAWBRIDGE OPERATOR Pap smear for cervical cancer screening COLONOSCOPY S 06/11/2023 MM MAMMOGRAM SCREENING BILAT W 3D RC W CAD Routine 12/10/2022 2:55 PM CDT LIPID PANEL & DIRECT LDL (IF NEEDED) Routine 10/23/2022 3:22 PM DRAWBRIDGE OPERATOR Screening for hyperlipidemia from Last 3 Months or Most Recently Relevant to Health Maintenance Results * PAP Test (09/11/2023 4:02 PM DRAWBRIDGE OPERATOR) Case Report Pap Case: [id number] Authorizing Provider: Aleksandra Travis, DIONTE, DIRECTOR OF CONTENT AND PROGRAMMING Collected: 09/11/2023 1602 Ordering Location: [facility] Obstetrics Received: 09/11/2023 1647 and Gynecology First Screen: Aaliyah Higginbotham CT (ASCP) Rescreen: [place] CT (ASCP) Specimen: Pap Test, Diagnostic, Cervix/Endocervix 10/18/2023 11:47 AM [facility] Pap Specimen Adequacy Satisfactory for evaluation, endocervical/marrufo sformation zone component absent. 10/18/2023 11:47 AM [facility] Pap Interpretation (NILM) Negative for intraepithelial lesion or malignancy. 10/18/2023 11:47 AM [facility] at 1147 DRAWBRIDGE OPERATOR Pap Disclaimer The Pap test is a screening test to aid in the detection of cervical and vaginal cancers and their precursor lesions. It is not a diagnostic procedure and should not be used as the sole means of detecting malignancy. Both false-positive and false-negative results may occur. 10/18/2023 11:47 AM [facility] Gross Description The specimen is received in SurePath fixative and properly labeled. 1 Pap-stained SurePath slide is prepared. 10/18/2023 11:47 AM [facility] Embedded Images 11:47 AM [facility] Other Specimen Type ENTIRE ENDOCERVIX / Unknown 09/11/2023 4:02 PM DRAWBRIDGE OPERATOR 09/11/2023 4:47 PM DRAWBRIDGE OPERATOR Comment:LMP: Patient's last menstrual period was 08/11/2023 (exact date). us Aleksandra Travis APRN, DIRECTOR OF CONTENT AND PROGRAMMING LAB PATHOLOGY Final R esult [address] [address], [facility] * COLONOSCOPY S (06/11/2023) us Licha Vincent PA-C DUMMY/OTHER/AR Final Result * MM Mammogram Screening Bilat W 3D Rc W CAD (12/10/2022 2:55 PM CDT) Anatomical Region Laterality Modality Breast Bilateral Mammography Impressions 12/12/2022 10:19 AM CDT : ACR BI-RADS Category 1: Negative RECOMMENDATION: Follow Up Imaging in 12 months - Bilateral The results and recommendations of this examination will be communicated to the patient. Narrative 12/12/2022 10:19 AM CDT MM MAMMOGRAM SCREENING BILAT W 3D RC W CAD performed on 12/10/22 Compared to: 10/16/2016 Foreign Image(S) Mammogram FINDINGS: Bilateral screening mammogram was performed with the assistance of Computer-Aided Detection and breast tomosynthesis. The breasts are heterogeneously dense, which may obscure small masses. There is no radiographic evidence of malignancy. us Licha Vincent PA-C RAD DANIELLE Final Result * (ABNORMAL) Lipid Panel and Direct LDL(If Needed) (10/23/2022 3:22 PM DRAWBRIDGE OPERATOR) Cholesterol 188 0 - 199 mg/dL 10/23/2022 6:59 PM DRAWBRIDGE OPERATOR [facility] Triglyceride 190(H) <=149 mg/dL 10/23/2022 6:59 PM DRAWBRIDGE OPERATOR [facility] HDL Cholesterol 56 >=40 mg/dL 10/23/2022 6:59 PM DRAWBRIDGE OPERATOR [facility] LDL, Calculated 94 <130 mg/dL 10/23/2022 6:59 PM DRAWBRIDGE OPERATOR [facility] Non HDL Chol, Calculated 132 <=159 mg/dL 10/23/2022 6:59 PM DRAWBRIDGE OPERATOR [facility] Cholesterol/HDL Ratio 3.4 10/23/2022 6:59 PM DRAWBRIDGE OPERATOR [facility] Hours Fasting N/A 10/23/2022 6:59 PM [facility] Blood Venipuncture / Unknown 10/23/2022 3:22 PM DRAWBRIDGE OPERATOR 10/23/2022 3:23 PM DRAWBRIDGE OPERATOR Licha Vincent PA-C LAB_1 Final Result [facility] C[facility] LAB [address] [address], [facility] [phone] [facility] [address] [place] [address], [facility] [phone] from Last 3 Months or Most Recently Relevant to Health Maintenance Insurance CARE PMAP CARE PMAP Care Teams Robotics Technologist Relationship Specialty [place] [id number] [place] [address] PCP - General 10/18/24
--- OUTSIDE RECORDS SUMMARY | 2025-06-03 17:01 | XMS_ITS | Encounter Summary ---
Author Organization [place] Address [facility] [place] [address] Care Team Providers Care Rail Switchman Name Role Phone No Ref-Primary, Physician Primary Care Provider Encounter Details Date Type Department Care Team (Latest Contact Info) Description 05/09/2025 Travel Social History Tobacco Use Types Packs/Day Years Used Date Smoking Tobacco: Never Assessed Adolescent Education Answer Date Record ed Getting School Help Needed Not on file 05/09 Comments No Sex and Gender Information Value Date Recorded Sex Assigned at Not on file Legal Sex Female 5:06 PM CDT Gender Identity Not on file Sexual Orientation Not on file documented as of this encounter Plan of Treatment Not on file documented as of this encounter Visit Diagnoses Not on filedocumented in this encounter Care Teams Rail Switchman Relationship Specialty Start Date End Date No Ref-Primary, Physician PCP - General 05/09/25 documented as of this encounter
--- OUTSIDE RECORDS SUMMARY | 2025-06-03 17:01 | XMS_ITS | Clinical Summary ---
Author Organization [place] Address [address] [place] [address] Care Team Providers Care Barback Name Role Phone No Ref-Primary, Physician Primary Care Provider Allergies No known active allergies Medications HYDROcodone-micky taminophen (NORCO) 5-325 MG tablet Take 1 tablet by mouth every 6 hours as needed. 10 tablet 05/10/2025 Encounters Date Type Department Care Team Description 05/09/2025 9:08 PM CDT - 05/10/2025 1:17 AM CDT Emergency [facility] Emergency Dept [address] [place] [address] Lee Solitario, DO Ureterolithiasis (Primary Dx) Discharge Disposition: Home or Self Care 05/09/2025 Travel from Last 3 Months Social History Tobacco Use Types Packs/Day Years [...] - - Body Mass Index - - Plan of Treatment Health Maintenance Due Date Last Done Comments ADVANCE CARE PLANNING 1973 ANNUAL REVIEW OF HM ORDERS 1973 CT COLONOGRAPHY 1973 FIT 1973 FLEX SIG 1973 sDNA (Cologuard) 1973 YEARLY PREVENTIVE VISIT 1976 HIV SCREENING 1988 HEPATITIS C SCREENING 1991 HEPATITIS B VACCINE (1 of 3 - 19+ 3-dose series) 1992 DTAP/TDAP/TD VACCINE (1 - Tdap) 1998 LIPID 2013 PNEUMOCOCCAL VACCINE 50+ YEARS (1 of 1 - PCV) 2023 ZOSTER VACCINE (1 of 2) 2023 PHQ-2 (once per calendar year) 2024 MAMMO SCREENING 12/10/2024 12/10/2022, 12/10/2022 COVID-19 VACCINE (1 - 2024-2 6 season) 2025 INFLUENZA VACCINE (#1) 2025 PAP 09/11/2026 09/11/2023 DIABETES SCREENING 05/09/2028 05/09/2025 COLONOSCOPY 06/11/2033 06/11/2023 COLORECTAL CANCER SCREENING 06/11/2033 HPV VACCINE (No Doses Required) Completed MENINGITIS VACCINE Aged Out No longer eligible based on patient's age to complete this topic Procedures Procedure Name Priority Date/Time Associated Diagnosis Comments CT ABDOMEN PELVIS W CONTRAST STAT 05/09/2025 10:44 PM CDT ROUTINE UA WITH MICROSCOPIC REFLEX TO CULTURE STAT 05/09/2025 10:12 PM CDT HCG QUANTITATIVE STAT 05/09/2025 6:13 PM CDT EXTRA RED TOP TUBE STAT 05/09/2025 6: 13 PM CDT EXTRA BLUE TOP TUBE STAT 05/09/2025 6 :13 PM CDT LIPASE STAT 05/09/2025 6:13 PM CDT EXTRA TUBE STAT 05/09/2025 6:13 PM CDT COMPREHENSIVE METABOLIC PANEL (LIMITED OCCURRENCES) STAT 05/09/2025 6:13 PM CDT CBC WITH PLATELETS (LIMITED OCCURRENCES) STAT 05/09/2025 6:13 PM CDT from Last 3 Months Results * CT Abdomen Pelvis w Contrast [...] EXAM: CT ABDOMEN PELVIS W CONTRAST LOCATION: [facility] DATE: 05/09/2025 INDICATION: RUQ, RLQ, right flank. [...] EXAM: CT ABDOMEN PELVIS W CONTRAST LOCATION: [facility] DATE: 05/09/2025 INDICATION: RUQ, RLQ, right flank. [...] mm, could represent adrenaladenoma. 4. Hepatic steatosis. Lee Solitario DO [facility] ORDERABLES Final Result * (ABNORMAL) UA with Microscopic reflex to Culture (05/09/2025 10:12 PM CDT) Color Urine Yellow Colorless, Straw, Light Yellow, Yellow 05/09/2025 10:36 PM CDT LABORATORY Appearance Urine Clear Clear 05/09/20 25 10:36 PM CDT LABORATORY Glucose Urine Negative Negative mg/dL 05/09/2025 10:36 PM CDT LABORATORY Bilirubin Urine Negative Negative 5 10:36 PM CDT LABORATORY Ketones Urine Trace(A) Negative mg/dL 05/09/2025 10:36 PM CDT LABORATORY Specific [place]ouss[place] Urine 1.020 1.003 - 1.035 05/09/2025 10:36 PM CDT LABORATORY Blood Urine Small(A) Negative 05/09/2025 10:36 PM CDT LABORATORY pH Urine 6.5 5.0 - 7.0 05/09/2025 10:36 PM CDT LABORATORY Protein Albumin Urine Negative Negative mg/dL 05/09/2025 10:36 PM CDT LABORATORY Urobilinogen Urine 6.0(A) Normal mg/dL 05/09/2025 10:36 PM CDT [facility] Nitrite Urine Negative Negative 05/09/2025 10:36 PM CDT [facility] Leukocyte Esterase Urine Negative Negative 05/09/2025 10:36 PM CDT [facility] Mucus Urine Present(A) None Seen /LPF 05/09/2025 10:36 PM CDT [facility] RBC Urine 19(H) <=2 /HPF 05/09/2025 10:36 PM CDT [facility] WBC Urine 7(H) <=5 /HPF 05/09/2025 10:36 PM CDT [facility] Squamous Epithelials Urine 4(H) <=1 /HPF 05/09/2025 10:36 PM CDT [facility] Hyaline Casts Urine 3(H) <=2 /LPF 05/09/2025 10:36 PM CDT [facility] Urine URINE SPECIMEN / Unknown Non-blood Collection / Unknown 05/09/2025 10:12 PM CDT 05/09/2025 10:22 PM CDT Narrative [facility] - 05/09/2025 10:36 PM CDT Urine Culture not indicated Lee Solitario DO LAB - URINE ORDERABLES Final R esult [facility] [address] Lab (1st floor, no room number) [place] [address] * Extra Red Top Tube (05/09/2025 6:13 PM CDT) Hold Specimen [facility] 05/09/2025 7:32 PM CDT LABORATORY Blood STRUCTURE OF RIGHT UPPER LIMB / Unknown Venipuncture / Unknown 05/09/2025 6:13 PM CDT 05/09/2025 6:27 PM CDT Lee Solitario DO LAB - BLOOD ORDERABLES Final R esult [facility] [address] Lab (1st floor, no room number) [place] [address] * Extra Blue Top Tube (05/09/2025 6:13 PM CDT) Hold Specimen [facility] 05/09/2025 7:32 PM CDT [facility] Blood STRUCTURE OF RIGHT UPPER LIMB / Unknown Venipuncture / Unknown 05/09/2025 6:13 PM CDT 05/09/2025 6:27 PM CDT Lee Solitario DO LAB - BLOOD ORDERABLES Final R esult [facility] [address] Lab (1st floor, no room number) [place] [address], [facility] * CBC with Platelets (Limited Occurrences) (05/09/2025 [...] LAB - BLOOD ORDERABLES Final R esult [facility] [address] Lab (1st floor, no room number) [place] [address], [facility] * (ABNORMAL) Comprehensive Metabolic Panel (Limited Occurrences) (05/09/2025 6:13 PM CDT) Sodium 133(L) 135 - 145 mmol/L 05/09/2025 6:50 PM CDT LABORATORY Potassium 3.7 3.4 - 5.3 mmol/L 05/09/2025 6:50 PM CDT [facility] Carbon Dioxide (CO2) 22 22 - 29 mmol/L 05/09/2025 6:50 PM CDT [facility] Anion Gap 10 7 - 15 mmol/L 05/09/2025 6:50 PM CDT [facility] Urea Nitrogen 12.4 6.0 - 20.0 mg/dL 05/09/2025 6:50 PM CDT [facility] Creatinine 0.92 0.51 - 0.95 mg/dL 05/09/2025 6:50 PM CDT [facility] GFR Estimate 75 >60 mL/min/1.7 3m2 05/09/2025 6:50 PM CDT [facility] Comment:eGFR calculated us2020 CKD-EPI equation. Calcium 8.9 8.8 - 10.4 mg/dL 05/09/2025 6:50 PM CDT LABORATORY Chloride 101 98 - 107 mmol/L 05/09/2025 6:50 PM CDT LABORATORY Glucose 145(H) 70 - 99 mg/dL 05/09/2025 6:50 PM CDT [facility] Alkaline Phosphatase 82 40 - 150 U/L 05/09/2025 6:50 PM CDT [facility] AST 19 0 - 45 U/L 05/09/2025 6:50 PM CDT [facility] ALT 16 0 - 50 U/L 05/09/2025 6:50 PM CDT [facility] Protein Total 6.9 6.4 - 8.3 g/dL 05/09/2025 6:50 PM CDT [facility] Albumin 4.0 3.5 - 5.2 g/dL 05/09/2025 6:50 PM CDT [facility] Bilirubin Total 0.5 <=1.2 mg/dL 05/09/2025 6:50 PM CDT [facility] Blood STRUCTURE OF RIGHT UPPER LIMB / Unknown Venipuncture / Unknown 05/09/2025 6:13 PM CDT 05/09/2025 6:27 PM CDT Lee Solitario DO LAB - BLOOD ORDERABLES Final R esult [facility] [address] Lab (1st floor, no room number) [place] [address] * Lipase (05/09/2025 6:13 PM CDT) Lipase 27 13 - 60 U/L 05/09/2025 6:50 PM CDT [facility] Blood STRUCTURE OF RIGHT UPPER LIMB / Unknown Venipuncture / Unknown 05/09/2025 6:13 PM CDT 05/09/2025 6:27 PM CDT Lee Solitario DO LAB - BLOOD ORDERABLES Final R esult Performing Organization Address City/[facility]/ZIP Co de Phone Number [facility] [address] Lab (1st floor, no room number) [place] [address] * HCG quantitative (05/09/2025 6:13 PM CDT) hCG Quantitative <1 <5 mIU/mL 05/09/20 10:12 PM CDT [facility] Comment: Adult: 0-5 mIU/mL for healthy non- person Neonates: Should be within normal ranges by 2 days after Blood STRUCTURE OF RIGHT UPPER LIMB / Unknown Venipuncture / Unknown 05/09/2025 6:13 PM CDT 05/09/2025 6:27 PM CDT Lee Solitario DO LAB - BLOOD ORDERABLES Final R esult [facility] [address] [facility] Lab (1st floor, no room number) [place] [address], [facility] from Last 3 Months Insurance MEDICA [employer]ICE [employer] Care Teams Barback Relationship Specialty Start Date End Date No Ref-Primary, Physician PCP - General 05/09/25
[2025-06-03 17:08] VITALS: BP 112/70; PULSE 76; RESP 16; TEMP 36.6; O2SAT 97; BMI 27.8
--- NOTE | 2025-06-03 17:18 | ED_ITS ---
HPI - Abdominal Pain General Time Seen by Provider: 17:18 Date Seen: 06/03/25 Chief Complaint: Abdominal Pain Stated Complaint: Kidney stone pain Time Seen by Provider: 06/03/25 17:07 Source: patient and RN notes reviewed Mode of arrival: ambulatory Limitations: no limitations History of Present Illness HPI narrative: Ally is a very pleasant 49-year-old female otherwise healthy but has a known 7 mm kidney stone after symptoms appeared to and half weeks ago who comes to the emergency room in [place] for the 1st time for evaluation regarding return of pain. Ally noted that she was diagnosed with a 7 mm kidney stone at [facility] proximally 2 and half weeks ago. She was given Flomax [place] and was sent home at which time she has been trying to be maintain her hydration. She notes that she actually improved for a while although she never saw stone in the strainer. At the in the asked week or so she has had more pressure with urination, pain from her umbilicus to her vaginal area. She has not had fever chills or vomiting. She is rating the pain today as 7/10. She does note that these symptoms are similar to what she was feeling 2 and half weeks ago. Related Data Previous Rx's ?Medication ?Instructions ?Recorded hydrocodone 5 mg-acetaminophen 325 1 tab PO Q4-6H PRN pain #14 tabs 06/03/25 mg tablet ketorolac 10 mg tablet 10 mg PO Q8H PRN pain #14 ta bs 06/03/25 tamsulosin 0.4 mg capsule (Flomax) 0.4 mg PO DAILY #14 caps 06/03/25 Allergies Allergy/AdvReac Type Severity Reaction Status Date / Time No Known Drug Allergies Allergy Verified 06/03/25 17:08 Review of Systems Status of ROS Reports: 10 or more systems reviewed and unremarkable except as noted in History and below Const Denies: fever, chills or fatigue Eyes Denies: change in vision ENMT Denies: throat pain, neck pain or nasal congestion Cardio Denies: chest pain Resp Denies: cough GI Reports: abdominal pain; Denies: nausea, vomiting or diarrhea Reports: painful urination (Described as a pressure); Denies: urinary frequency or blood in urine Musculo Denies: neck pain Endo Denies: fatigue PFSH PFSH Social History Smoking Status: Former smoker Do you use any of these nicotine containing products: None How often do you have a drink containing alcohol: 2-4 times a month AUDIT-C Alcohol total score: 2 Non-prescribed substance use: marijuana (any form) service: No Exam Narrative: Exam Narrative: Alert and oriented. No acute distress. External ears eyes nose clear. Heart with regular rate rhythm lungs are clear. Abdomen is soft. Tenderness noted in the suprapubic area. No CVA tenderness with percussion. Moving all extremities. Const: Vital Signs, click to edit/add: Vital Signs - 24 hr 06/03/25 17:08 Temperature 97.9 F Pulse Rate [Pulse Oximeter] 76 Respiratory Rate 16 Blood Pressure [Ri ght Upper Arm] 112/70 Pulse Oximetry 97 Oxygen Delivery Me thod Room Air Documenting provider has reviewed patient's vital signs: yes Course Course ED Course: Differential diagnosis includes but is not limited to ureteral colic, pyelonephritis, musculoskeletal injury, underlying bowel etiology. Most likely this represents ongoing kidney stone symptoms. Will place IV give 1 L of saline as well as Toradol 15 mg IV. Plan on CBC, basic panel, CRP as well as urinalysis. I have ordered a noncontrast CT of the abdomen. Reevaluation(s) Reevaluation #1: Able to get old records from [facility]. A 7 mm stone was noted in the distal right ureter with associated mild hydroureter and hydronephrosis on 05/09/2025. It also showed a 1.3 cm left adrenal nodule which had increased in size from 11 mm since 2018. Thought to represent adrenal adenoma. Reevaluation #2: Patient feeling much better after Toradol and fluids. Vital Signs Vital signs: Initial Vital Signs Temperature 97.9 F 06/03/25 17:08 Temperature Source Temporal Artery Scan 06/03/25 17:08 Pulse Rate 76 06/03/25 17:08 Respiratory Rate 16 06/03/25 17:08 Blood Pressure 112/70 06/03/25 17:08 Blood Pressure Mean 84 06/03/25 17:08 Pulse Oximetry 97 06/03/25 17:08 Oxygen Delivery Method Room Air 06/03/25 17:08 Vital Signs Temperature 97.9 F 06/03/25 17:08 Pulse Rate 76 06/03/25 17:08 Respiratory Rate 16 06/03/25 17:08 Blood Pressure 112/70 06/03/25 17:08 Pulse Oximetry 97 06/03/25 17:08 Oxygen Delivery Method Room Air 06/03/25 17:08 Temperature 97.9 F 06/03/25 17:08 Pulse Rate 76 06/03/25 17:08 Respiratory Rate 16 06/03/25 17:08 Blood Pressure 112/70 06/03/25 17:08 Pulse Oximetry 97 06/03/25 17:08 Oxygen Delivery Method Room Air 06/03/25 17:08 Medications Administered Medications: Discontinued Medications Generic Name Dose Route Start Last Admin Trade Name Freq PRN Reason Stop Dose Admin Sodium Chloride 500 mls @ 500 mls/hr 06/03/25 17:27 06/03/25 17:45 0.9 % Sodium Chloride 500 Ml IV 06/03/25 18:26 500 mls/hr .Q1H MARYLIN Administration Ketorolac Tromethamine 15 mg 06/03/25 17:26 06/03/25 17:45 Ketorolac 15 Mg/Ml Inj IVP 06/03/25 17:27 15 mg ONCE ONE Administration MDM - Abdominal Pain MDM Narrative Medical decision making narrative: 1. Ureteral colic secondary to kidney stone-patient feeling much improved after Toradol. Laboratory values are reassuring with no UTI, elevated creatinine or elevated CRP. We will be discharging patient home. Fortunately she ready has an appointment with Urology. We will provider with the disc and print out of her results here. For pain she will use Toradol 10 mg p.o. q.8 hours p.r.n. 14. Tablets. For pain not relieved by Toradol [place] 5/325 1 tab p.o. q.4-6 hours p.r.n. 14. Finally Flomax 0.4 mg p.o. daily 14. Would ask that she seek medical attention for fever, vomiting, worsening symptoms. No evidence of UTI at this time. If urine culture were to be positive she would need to be treated with antibiotics. 2. Adrenal adenoma-patient informed of the adrenal adenoma noted on the CT rep ort from [facility]. She was not aware of this. Has increased in size by 4 mm since 2018. I did state that most of the time these are benign growths but given the change in size will have her follow-up with her primary MD. This was discussed with both her and her . 3. Disposition-home at this time. Return as needed for worsening symptoms. Addendum: A patient also informed that he does have a 2 x 2.3 cm cyst on her ovary. Would recommend follow-up with OBGYN as they may wish to follow this at age of 49. Medical Records Attestation: I reviewed the patient's medical records. Medical records narrative: We have requested records from [facility]. Lab Data Attestation: I reviewed the patient's lab results. Labs: Lab Results 06/03/25 06/03/25 Range/Units 17:18 17:30 WBC 9.07 (4.50-11.00) K/uL RBC 4.28 (4.00-5.20) m/uL Hgb 13.0 (12.0-16.0) gm/dL Hct 39.0 (33.0-51.0) % MCV 91 (80-100) fL MCH 30 (26-34) pg MCHC 33 (32-36) gm/dL RDW Coeff of Sangeetha 12.6 (11.5-15.5) % Plt Count 300 (140-440) K/uL Neut % (Auto) 57.8 (42.0-72.0) % Lymph % (Auto) 33.8 (20-44) % [place] % (Auto) 6.4 (0.0-11.0) % Eos % (Auto) 1.8 (0.0-7.0) % Baso % (Auto) 0.1 (0.0-3.0) % Neut # (Auto) 5.24 (1.7-7.0) K/uL Lymph # (Auto) 3.07 H (0.90-2.90) K/uL [place] # (Auto) 0.60 (0.00-0.90) K/UL Eos # (Auto) 0.16 (0.00-0.50) K/uL Baso # (Auto) 0.01 (0.00-0.30) K/uL Abs Immat Gran (auto) 0.01 (0.00-0.30) K/uL Imm/Tot Granulo (auto) 0.1 % Sodium 132 L (135-149) mmol/L Potassium 3.5 L (3.6-5.1) mmol/L Chloride 100 (96-114) mmol/L Carbon Dioxide 25 (20-32) mmol/L Anion Gap 7 (7-15) mEq/L BUN 10 (7-30) mg/dL Creatinine 0.6 (0.5-1.5) mg/dL Estimated Creat Clear 83.71 Estimated GFR 109 ml/min Glucose 106 (60-115) mg/dL Calcium 8.7 (8.4-10.6) mg/dL C-Reactive Protein < 0.5 L (0.5-1.0) mg/dL Urine Color Yellow (Yellow) Urine Appearance Clear (Clear) Urine pH 7.0 (5.0-8.5) Ur Specific [place] 1.020 (1.000-1.030) Urine Protein Negative (Negative) Urine Glucose (UA) Negative (Negative) Urine Ketones Negative (Negative) Urine Blood 2+ A (Negative) Urine Nitrite Negative (Negative) Urine Bilirubin Negative (Negative) Urine Urobilinogen 0.2 (0.2-1.0) Ur Leukocyte Esterase Negative (Negative) Urine RBC 2-5 A (0-2) Urine WBC 2-5 (0-5) Ur Squamous Epith Cells Few (None-Few) Urine Bacteria Few A (None) Imaging Data CT scan - abdomen: Attestation: I have reviewed the pertinent imaging results. Radiologist's impression: Abdominal pain. TECHNIQUE: CT abdomen and pelvis without contrast. COMPARISON: None. FINDINGS: Lower chest: Unremarkable. Liver: Unremarkable. Gallbladder and bile ducts: Collapsed gallbladder.. Pancreas: Unremarkable. Spleen: Punctate calcification. Otherwise unremarkable.. Adrenal glands: Unremarkable. Kidneys: 5 millimeter stone seen in the right distal ureter just proximal to the ureter vesicular junction. Punctate 0.2 centimeter nonobstructing renal calculus in the right lower pole. No hydronephrosis. No left urinary calculi. GI tract: A few scattered colonic diverticula. Normal appendix. Vasculature: Abdominal aorta is normal in caliber. Lymph nodes: No lymphadenopathy. Peritoneum/Abdominal Wall: Unremarkable. Pelvis: 2.0 x 2.3 centimeter right ovarian cyst.. Bones: No acute findings.. IMPRESSION: 5 millimeter stone in the right distal ureter just proximal to the ureterovesicular junction. Punctate 0.2 centimeter nonobstructing right renal calculus. No hydronephrosis. 2.0 x 2.3 centimeter right ovarian cyst. Discharge Plan Discharge Clinical Impression: Calculus of kidney, Colic, ureteral Patient Disposition: Home, Self-Care Condition: Improved Additional Instructions: Continue to strain urine. Seek medical attention for fever, vomiting, worsening symptoms. I am so happy that you already have a follow-up appointment with Urology. For pain: Toradol is an NSAID like ibuprofen or Tylenol. It is what you received in your IV today. You can only take it for 5 days but hopefully you will be improved by then. This can be taken 1 tablet every day hours as needed. [place] is a combination pain med hydrocodone on narcotic and Tylenol. You should not take any extra Tylenol with this medicine. You should not take any sedating medications, sleep medications with this medicine. This medicine also may cause constipation so I do suggest a stool softener with its use. Let us restart Flomax in the hopes that your stone will pass. No evidence of urinary tract infection on your urinalysis today but you will be called if your culture is positive. I was unable to put all of these medicines in our vending machine. Apologies for that-I did send them to your pharmacy. Prescriptions: New tamsulosin [Flomax] 0.4 mg capsule 0.4 mg PO DAILY Qty: 14 0RF hydrocodone-acetaminophen 5-325 mg tablet 1 tab PO Q4-6H PRN (Reason: pain) Qty: 14 0RF ketorolac 10 mg tablet 10 mg PO Q8H PRN (Reason: pain) Qty: 14 0RF Rx Instructions: maximum total duration of 5 days from all oral, intranasal, or parenteral formulations Follow Up/Referrals: Provider,Not a Local [Primary Care Provider, Family Practice] Stand Alone Forms: [employer]th Info Instructions
[2025-06-03 17:25] LABS: Appearance Urine Clear (Clear)
--- NOTE | 2025-06-03 17:26 | CRLHL7_ITS ---
For Patients: As a result of the Century Cures Act, medical imaging exams and procedure reports are released immediately into your electronic medical record. You may view this report before your referring provider. If you have questions, please contact your health care provider. INDICATION: Abdominal pain. TECHNIQUE: CT abdomen and pelvis without contrast. COMPARISON: None. FINDINGS: Lower chest: Unremarkable. Liver: Unremarkable. Gallbladder and bile ducts: Collapsed gallbladder.. Pancreas: Unremarkable. Spleen: Punctate calcification. Otherwise unremarkable.. Adrenal glands: Unremarkable. Kidneys: 5 millimeter stone seen in the right distal ureter just proximal to the ureter vesicular junction. Punctate 0.2 centimeter nonobstructing renal calculus in the right lower pole. No hydronephrosis. No left urinary calculi. GI tract: A few scattered colonic diverticula. Normal appendix. Vasculature: Abdominal aorta is normal in caliber. Lymph nodes: No lymphadenopathy. Peritoneum/Abdominal Wall: Unremarkable. Pelvis: 2.0 x 2.3 centimeter right ovarian cyst.. Bones: No acute findings.. IMPRESSION: 5 millimeter stone in the right distal ureter just proximal to the ureterovesicular junction. Punctate 0.2 centimeter nonobstructing right renal calculus. No hydronephrosis. 2.0 x 2.3 centimeter right ovarian cyst. Please note that all CT scans at this facility use dose modulation, iterative reconstruction, and/or weight-based dosing when appropriate to reduce radiation dose to as low as reasonably achievable. Dictated by Ted Cho MD @ 06/03/2025 6:48:16 PM (Electronically Signed)
[2025-06-03 17:43] LABS: Hematocrit* 39.0 % (33.0-51.0); Hemoglobin* 13.0 gm/dL (12.0-16.0); Immature Granulocytes Abs Auto 0.01 K/uL (0.00-0.30); Immature Granulocytes Pct Auto 0.1 %; Lymphocytes Absolute Auto 3.07 K/uL (0.90-2.90); Mean Corpuscular HGB Conc 33 gm/dL (32-36); Mean Corpuscular Hemoglobin 30 pg (26-34); Mean Corpuscular Volume 91 fL (80-100); RDW Coefficient of Variation % 12.6 % (11.5-15.5); Red Blood Count* 4.28 m/uL (4.00-5.20); White Blood Count* 9.07 K/uL (4.50-11.00)
[2025-06-03 17:44] LABS: Slide Review Reflex No
[2025-06-03] MEDS: 0.9 % SODIUM CHLORIDE 500 ML 500 ML IV (17:45)
[2025-06-03 17:55] LABS: Chloride* 100 mmol/L (96-114); Sodium* 132 mmol/L (135-149)
[2025-06-03 17:56] LABS: Potassium* 3.5 mmol/L (3.6-5.1)
[2025-06-03 17:59] LABS: Anion Gap 7 mEq/L (7-15); Blood Urea Nitrogen* 10 mg/dL (7-30); Calcium* 8.7 mg/dL (8.4-10.6); Carbon Dioxide* 25 mmol/L (20-32); Creatinine* 0.6 mg/dL (0.5-1.5); Est. Creatinine Clearance* 83.71; Estimated Glomerular Filt Rate 109 ml/min; Glucose* 106 mg/dL (60-115)
[2025-06-03 19:14] VITALS: BP 99/70; PULSE 69; RESP 16; O2SAT 97
== END 2025-06-03 19:16 | disposition home or self-care (01) ==
PROVIDERS: Emergency Provider Family Medicine
DX: N20.0 Calculus of kidney (principal); N23 Unspecified renal colic; R79.89 Other specified abnormal findings of blood chemistry; D35.02 Benign neoplasm of left adrenal gland; N83.201 Unspecified ovarian cyst, right side
CPT/HCPCS: 36415; 74176; 80048; 81001; 81003; 81015; 85025; 86140; 87086; 96361; 96374; 99284; J1885; J7030